=== PATIENT | female | born 1955 | race African-American/Black ===

== ENCOUNTER 2021-02-20 14:27 | Emergency (ER) | payer MEDICARE, OTHER ==
[~2021-02-20] VITALS: Ht 175.3 cm; Wt 81.7 kg
[~2021-02-20 14:27] MED LIST: ADVAIR 250-501 EACH INH; ALEVE PO; ALPRAZOLAM 0.0.25 M1 PO; CLIMARA 0.00.0375 MG TD; DIFLUCAN150 MG PO; FLEXERIL PO; HYDROCODON-ACE1 EAC7 PO; NAPRELAN PO; NEVANAC OPHTHALMIC; PRED MILD5 ML OP; SPIRIVA INH; TRAMADOL 50 MG50 MG PO; VENTOLIN HFA INH8 GM IH; XANAX 0.5 MG0.5 M1 PO; ZOVIRAX PO
[2021-02-20 14:53] LABS: ABSOLUTE NEUTROPHILS 2.6 thou/uL (1.4-8.2); BASOPHILS 0.9 % (0.0-2.0); EOSINOPHILS 4.4 % (0.0-3.0); HEMATOCRIT 34.9 % (37.0-47.0); HEMOGLOBIN 11.7 gm/dL (12.0-15.0); LYMPHOCYTES 37.8 % (24.0-44.0); MCHC 33.7 g/dL (28.0-37.0); MCV 89.1 fL (80.0-100.0); PLATELET COUNT 396 thou/uL (150-400); POLYS 43.9 % (36.0-66.0); RBC 3.91 mil/uL (4.20-5.00); RDW 14.6 % (10.5-14.5)
[2021-02-20 15:02] LABS: ANION GAP 2 mmol/L (7-16); BUN 7 mg/dL (7-18); CALCIUM 9.2 mg/dL (8.5-10.1); CHLORIDE 106 mmol/L (98-107); CO2 30 mmol/L (21-32); CREATININE 0.9 mg/dL (0.6-1.0); GLUCOSE 90 mg/dL (74-106); POTASSIUM 3.8 mmol/L (3.5-5.1); SODIUM 138 mmol/L (136-145)
[2021-02-20 15:12] LABS: SGOT 15 U/L (15-37); SGPT 29 U/L (14-59); TOTAL BILIRUBIN 0.2 mg/dL (0.2-1.0); TOTAL PROTEIN 7.7 g/dL (6.4-8.2); TROPONIN-I <0.06 ng/mL (<0.06)
[2021-02-20 17:39] VITALS: BP 129/63
--- NOTE | 2021-02-21 09:05 | EKG ---
[place] [address] [facility] [place] [address] ELECTROCARDIOGRAM REPORT Name: JOSEPH ROJASOMKAR [id number] Admission: 02/20/21 Attend Phys: Discharge: 02/20/21 Date of : 55 Report #: [id number] [facility] ED Test Date: 2021-02-20 Test Time: 14:36:20 Pat Name: OMKAR ROJAS Department: Room: Gender: F Software Trainer: edel : 1955 Requested By: Rodo Monte Order Number: [id number] MD: Cesar Weinberg Measurements Intervals [place] Rate: 76 P: 81 [place]: 208 QRS: 60 QRSD: 87 T: 31 QT: 382 QTc: 430 Interpretive Statements Sinus rhythm Atrial premature complex Left atrial enlargement RSR' in V1 or V2, probably normal variant Compared to ECG 12/21/2015 16:58:26 Atrial premature complex(es) now present Electronically Signed On 02-21-2021 9:05:21 CDT by Cesar Weinberg [email or web address] <ELECTRONICALLY SIGNED> By: Cesar Weinbegr MD, [facility] 02/21/21904 1436 1436 Cesar Weinberg MD, [facility] /EPI
== END 2021-02-20 17:43 | disposition home or self-care (01) ==
LOC: ER 14:27
PROVIDERS: Emergency Medicine
DX: R07.89 Other chest pain (principal); Z90.710 Acquired absence of both cervix and uterus; Z79.899 Other long term (current) drug therapy

== ENCOUNTER 2021-07-11 02:50 | Emergency (ER) | payer MEDICARE, OTHER ==
[~2021-07-11] VITALS: Ht 172.7 cm; Wt 83.5 kg
[2021-07-11] MEDS ORDERED: TOBRADEX EYE O3.5 GM OPHTHALMIC (03:22)
[2021-07-11] MEDS ORDERED: TIZANIDINE HCL 22 M1 PO (03:22)
[2021-07-11] MEDS ORDERED: DUREZOL5 ML OPHTHALMIC (03:22)
[2021-07-11] MEDS ORDERED: FAMOTIDINE 20 M20 MG PO (03:23)
[2021-07-11] MEDS ORDERED: ATORVASTATIN CA10 MG PO (03:23)
[2021-07-11] MEDS ORDERED: SYMBICORT160 MCG/4. INH (03:23)
[2021-07-11] MEDS ORDERED: NORVASC5 MG PO (03:23)
[2021-07-11] MEDS ORDERED: ADVAIR 250-501 EACH INH (03:24)
[2021-07-11 03:33] LABS: ABSOLUTE NEUTROPHILS 2.8 thou/uL (1.4-8.2); BASOPHILS 0.7 % (0.0-2.0); EOSINOPHILS 2.7 % (0.0-3.0); HEMATOCRIT 34.1 % (37.0-47.0); HEMOGLOBIN 11.4 gm/dL (12.0-15.0); LYMPHOCYTES 35.9 % (24.0-44.0); MCH 29.9 pg (26.0-34.0); MCHC 33.3 g/dL (28.0-37.0); MCV 89.6 fL (80.0-100.0); PLATELET COUNT 356 thou/uL (150-400); POLYS 47.7 % (36.0-66.0); RBC 3.81 mil/uL (4.20-5.00); RDW 14.4 % (10.5-14.5); WBC 5.8 thou/uL (4.0-11.0)
[2021-07-11 03:59] LABS: CALCIUM 8.6 mg/dL (8.5-10.1); CREATININE 0.9 mg/dL (0.6-1.0)
[2021-07-11 04:43] LABS: ALBUMIN 3.7 g/dL (3.4-5.0); TOTAL BILIRUBIN 0.7 mg/dL (0.2-1.0); TOTAL PROTEIN 7.3 g/dL (6.4-8.2)
[2021-07-11 06:37] VITALS: BP 141/76
--- NOTE | 2021-07-11 06:57 | EKG ---
[facility] [place] [address] ELECTROCARDIOGRAM REPORT Name: OMKAR HATCH [facility] [id number] Admission: 07/11/21 Attend Phys: Discharge: 07/11/21 Date of : 55 Report #: [id number] [facility] ED Test Date: 2021-07-11 Test Time: 03:05:24 Pat Name: OMKAR ROJAS Department: Room: Gender: F Senior Engineering Technician: [email or web address] : 1955 Requested By: Rebel Juarez Order Number: [id number] MD: Aly Scott Measurements Intervals [place] Rate: 69 P: 85 [place]: 220 QRS: 54 QRSD: 86 T: 29 QT: 406 QTc: 435 Interpretive Statements Sinus rhythm Prolonged [place] interval Probable left atrial enlargement Baseline wander in lead(s) V2 Compared to ECG 02/20/2021 14:36:20 First degree AV block now present Atrial premature complex(es) no longer present Electronically Signed On 07-11-2021 6:56:50 CDT by Aly Scott [email or web address] <ELECTRONICALLY SIGNED> By: Aly Scott MD, [facility] 07/11/21 0656 [id number] 0305 Aly Scott MD, [facility] /EPI
== END 2021-07-11 06:30 | disposition home or self-care (01) ==
LOC: ER 02:50
PROVIDERS: Emergency Medicine
DX: R07.89 Other chest pain (principal); R07.2 Precordial pain; Z79.899 Other long term (current) drug therapy; Z90.710 Acquired absence of both cervix and uterus